=== PATIENT | male | born 1930 | race Caucasian/White ===

== ENCOUNTER 2019-08-12 08:49 | Inpatient (IN) | payer MEDICARE ==
[~2019-08-12] VITALS: Ht 182.9 cm; Wt 56.3 kg
[2019-08-12 09:55] VITALS: BP 155/91
[2019-08-12] MEDS ORDERED: SOTALOL 80MG TABLET PO SCH ×2 (10:00→10:30)
[2019-08-12] MEDS ORDERED: LUTE1CAP3 PO (11:44)
[2019-08-12] MEDS ORDERED: TRIA15CR2 TP (11:44)
[2019-08-12] MEDS ORDERED: OMEG1CAP23 PO (11:44)
[2019-08-12] MEDS ORDERED: IRBE1TAB13 PO (11:44)
[2019-08-12] MEDS ORDERED: MAGNESIUM 200 MG PO (11:44)
[2019-08-12] MEDS ORDERED: METO25TA91 PO (11:44)
[2019-08-12 13:08] VITALS: BP 149/83
[2019-08-12 19:08] VITALS: BP 155/85
[2019-08-12] MEDS: SOTALOL 80MG TABLET PO SCH (21:00)
[2019-08-12] MEDS ORDERED: APIXABAN 5 MG TABLET PO SCH (21:00)
[2019-08-13 00:39] VITALS: BP 155/87
[2019-08-13] MEDS: ASPIRIN 81 MG TABLET EC PO SCH (06:09)
[2019-08-13 06:11] VITALS: BP 156/91
[2019-08-13 07:03] VITALS: BP 156/92
[2019-08-13] MEDS ORDERED: HYDROCHLOROTHIAZIDE 12.5 MG CAPSULE PO SCH ×2 (09:00→21:00)
[2019-08-13] MEDS ORDERED: IRBESARTAN 300 MG TABLET PO SCH ×2 (09:00→21:00)
[2019-08-13] MEDS: SOTALOL 80MG TABLET PO SCH ×2 (09:02→20:55)
[2019-08-13] MEDS ORDERED: CHOL2000 PO (09:08)
[2019-08-13 13:05] VITALS: BP 137/73
[2019-08-13 18:38] VITALS: BP 135/80
[2019-08-14 00:29] VITALS: BP 162/88
[2019-08-14] MEDS: ASPIRIN 81 MG TABLET EC PO SCH (05:57)
[2019-08-14] MEDS ORDERED: DIPH25CA61 PO (07:46)
[2019-08-14 07:55] VITALS: BP 160/80
[2019-08-14] MEDS: SOTALOL 80MG TABLET PO SCH (09:26)
[2019-08-14] MEDS ORDERED: ASPI81TA45 PO (11:21)
[2019-08-14] MEDS ORDERED: SOTA80TA18 PO (11:21)
[2019-08-14 12:38] VITALS: BP 129/71
== END 2019-08-14 13:20 | disposition home or self-care (01) | DRG 309 ==
LOC: 5SO 08:49 → DCLOUNGE 08-14 13:17
PROVIDERS: ADMIT Internal Medicine Cardiovascular Disease; ATTEND Internal Medicine Cardiovascular Disease
DX: I48.0 Paroxysmal atrial fibrillation (principal); D68.69 Other thrombophilia; I10 Essential (primary) hypertension; Z79.82 Long term (current) use of aspirin; Z53.29 Procedure and treatment not carried out because of patient's decision for other reasons
CPT/HCPCS: 93005; G0378